=== PATIENT | male | born 1975 | race Two or more races ===

== ENCOUNTER 2017-05-12 18:57 | Inpatient (IN) | payer MEDICAID ==
[~2017-05-12] VITALS: Ht 182.9 cm; Wt 98.0 kg
[2017-05-12 19:39] VITALS: Ht 182.9 cm; Wt 98.0 kg
[2017-05-12 22:44] LABS: BASOPHIL % 0.3 % (0-2); PLATELET COUNT 292 x10^3mcL (130-400); RED CELL DISTRIBUTION WIDTH 13.3 % (11.5-14.5)
[2017-05-12 22:53] LABS: CALCIUM 8.3 mg/dL (8.5-10.1); CARBON DIOXIDE 27.9 mmol/L (21-32); CHLORIDE SERUM 104 mmol/L (98-107); CREATININE SERUM 0.9 mg/dL (0.7-1.3); GFR1 > 60 mL/min; GLUCOSE SERUM 88 mg/dL (74-106); POTASSIUM SERUM 3.9 mmol/L (3.5-5.1); SODIUM SERUM 141 mmol/L (136-145)
[2017-05-13] MEDS ORDERED: ALBUTEROL0.63 MG/3 (00:18)
[2017-05-13 01:42] VITALS: BP 119/69
[2017-05-13 02:12] LABS: MAGNESIUM 2.2 mg/dL (1.8-2.4); PHOSPHOROUS 4.9 mg/dL (2.5-4.9)
[2017-05-13 02:14] LABS: CHOLESTEROL/HDL RATIO 1.9; FREE T4 0.95 ng/dL (0.76-1.46); FREE THYROXINE INDEX 2.2 ug/dL (1.4-4.5); T4(THYROXINE) 5.9 ug/dL (4.7-13.3)
[2017-05-13 02:46] LABS: UA SPECIFIC GRAVITY >=1.030 (1.005-1.035); microscopic required? YES; urine erythrocyte TRACE (NEGATIVE)
[2017-05-13 02:53] LABS: AMPHETAMINE QUAL UR NONE DETECTED (NEG <=1000)
[2017-05-13 03:28] LABS: T3 TOTAL 0.88 ng/mL
[2017-05-13 05:53] VITALS: BP 105/51
[2017-05-13 07:37] LABS: CALCIUM 8.6 mg/dL (8.5-10.1); CARBON DIOXIDE 27.6 mmol/L (21-32); CHLORIDE SERUM 106 mmol/L (98-107); GFR1 > 60 mL/min; GLUCOSE SERUM 206 mg/dL (74-106); POTASSIUM SERUM 4.2 mmol/L (3.5-5.1); SODIUM SERUM 141 mmol/L (136-145)
[2017-05-13 07:54] LABS: BASOPHIL % 0.1 % (0-2); PLATELET COUNT 288 x10^3mcL (130-400); RED CELL DISTRIBUTION WIDTH 13.5 % (11.5-14.5)
[2017-05-13 09:37] VITALS: BP 122/74
[2017-05-13 13:15] VITALS: BP 126/86
[2017-05-13 17:34] VITALS: BP 135/87
[2017-05-13 20:41] VITALS: BP 135/79
[2017-05-14 05:55] VITALS: BP 121/70
[2017-05-14 09:44] VITALS: BP 128/69
[2017-05-14 12:20] VITALS: BP 119/65
[2017-05-14 16:38] VITALS: BP 114/63
[2017-05-14 21:17] VITALS: BP 124/72
[2017-05-15 05:26] VITALS: BP 130/72
[2017-05-15 09:42] VITALS: BP 125/78
[2017-05-15] MEDS ORDERED: TAMIFLU30 MG PO (11:09)
[2017-05-15] MEDS ORDERED: LEVAQUIN750 MG PO (11:09)
[2017-05-15] MEDS ORDERED: MEDDP PO (11:09)
[2017-05-15] MEDS ORDERED: DAYTIME-COLD N1 EACH PO (11:11)
[2017-05-15 13:12] VITALS: BP 125/78
== END 2017-05-15 14:00 | disposition home or self-care (01) | DRG 141 ==
LOC: ED 18:57 → DU 05-13 00:10 → MU 05-15 07:39
PROVIDERS: Emergency Medicine; Family Medicine
DX: J45.901 Unspecified asthma with (acute) exacerbation (principal); N17.0 Acute kidney failure with tubular necrosis; J09.X2 Influenza due to identified novel influenza A virus with other respiratory manifestations; R31.9 Hematuria, unspecified; I10 Essential (primary) hypertension; F14.10 Cocaine abuse, uncomplicated; E66.9 Obesity, unspecified; Z68.31 Body mass index [BMI] 31.0-31.9, adult
CPT/HCPCS: 83880; 84439; 87804; 90658; 94150; J1100; J2920; J2930; J3475; J7030; J7620; Q0092

== ENCOUNTER 2018-09-14 20:56 | Emergency (ER) | payer MEDICAID ==
[~2018-09-14] VITALS: Ht 180.3 cm; Wt 98.4 kg
[~2018-09-14 20:56] MED LIST: ALBUTEROL0.63 MG/3; DAYTIME-COLD N1 EACH PO; LEVAQUIN750 MG PO; MEDDP PO; TAMIFLU30 MG PO
[2018-09-14 21:15] VITALS: Ht 180.3 cm; Wt 98.4 kg
[2018-09-15 00:12] LABS: BASOPHIL % 0.3 % (0-2); RED CELL DISTRIBUTION WIDTH 13.2 % (11.5-14.5)
[2018-09-15 00:18] LABS: PLATELET COUNT 402 x10^3mcL (130-400)
[2018-09-15 00:21] LABS: CALCIUM 8.5 mg/dL (8.5-10.1); CARBON DIOXIDE 27.9 mmol/L (21-32); CHLORIDE SERUM 101 mmol/L (98-107); CREATININE SERUM 0.8 mg/dL (0.7-1.3); GFR1 > 60 mL/min; GLUCOSE SERUM 97 mg/dL (74-106); POTASSIUM SERUM 4.1 mmol/L (3.5-5.1); SODIUM SERUM 137 mmol/L (136-145)
[2018-09-15 00:26] LABS: ALBUMIN 3.5 g/dL (3.4-5.0); ALKALINE PHOSPHATASE 81 U/L (46-116); ALT/SGPT 26 U/L (16-63); AST/SGOT 15 U/L (15-37); BILIRUBIN TOTAL 1.1 mg/dL (0.20-1.00); TOTAL PROTEIN, SERUM 6.8 g/dL (6.4-8.2)
[2018-09-15 01:18] LABS: microscopic required? NO
[2018-09-15 01:54] LABS: UA SPECIFIC GRAVITY >=1.030 (1.005-1.035)
[2018-09-15 01:55] LABS: urine erythrocyte NEGATIVE (NEGATIVE)
[2018-09-15 02:18] VITALS: BP 134/74
== END 2018-09-15 02:18 | disposition home or self-care (01) ==
LOC: ED 20:56
PROVIDERS: Emergency Medicine
DX: J45.901 Unspecified asthma with (acute) exacerbation (principal)
CPT/HCPCS: 36415; 87804; J2930; J7613; J7620; Q0092

== ENCOUNTER 2019-07-01 14:42 | Emergency (ER) | payer MEDICAID ==
[~2019-07-01] VITALS: Ht 177.8 cm; Wt 92.5 kg
[2019-07-01 15:03] VITALS: Ht 177.8 cm; Wt 92.5 kg
[2019-07-01 16:30] VITALS: BP 130/71
== END 2019-07-01 16:30 | disposition home or self-care (01) ==
LOC: ED 14:42
DX: J45.901 Unspecified asthma with (acute) exacerbation (principal)
CPT/HCPCS: 87804; J2930; J7620